=== PATIENT | male | born 1945 | race Caucasian/White ===

== ENCOUNTER 2018-12-15 07:02 | Day surgery (SDC) | payer MEDICARE, OTHER ==
[2018-12-14 16:19] VITALS: BMI 29.4
[2018-12-15 08:09] LABS: #Eosinphils 0.2 thou/uL (0.0-0.7); #Lymphocytes 2.1 thou/uL (1.20-3.40); #Monocytes 0.5 thou/uL (0.11-0.59); %Basophils 0.6 % (0.0-1.0); %Eosinophils 2.8 % (0.0-10.0); %Lymphocytes 36.5 % (21.0-51.0); %Neutrophils 52.1 % (42.0-75.0); Hemoglobin 14.4 g/dL (14.0-18.0); Mean Corpuscular Hemoglobin 30.7 pg (27.0-31.0); Mean Corpuscular Volume 87.7 fL (78.0-98.0); Platelet Count 133 thou/uL (130-400); Red Blood Cell (RBC) Count 4.69 mill/uL (4.70-6.10); White Blood Cell (WBC) Count 5.7 thou/uL (4.8-10.8)
[2018-12-15 08:11] LABS: INR-International Normal Ratio 1.1; PTT 34.7 SEC (22.9-36.1); Prothrombin Time 13.8 SEC (12.0-14.7)
[2018-12-15] MEDS ORDERED: Lidocaine 1% w/Epinephrine 1:100K 20 ML VIAL ONE (08:25)
[2018-12-15] MEDS ORDERED: Fentanyl 100 MCG/2 ML VIAL ONE (08:42)
--- NOTE | 2018-12-15 12:51 | HP ---
HISTORY OF PRESENT ILLNESS: Mr. Huertas is a pleasant 73-year-old male with bilateral carpal tunnel syndrome. The patient's symptoms, the pain is 5/10 and has had multiple injections with good relief. He has failed conservative measures. Numbness and tingling. Works at [employer]. PAST MEDICAL HISTORY: Includes diabetes, rheumatoid arthritis. PAST SURGICAL HISTORY: None. SOCIAL HISTORY: Nonsmoker. No alcohol. Works at [employer]. ALLERGIES: NO KNOWN DRUG ALLERGIES. MEDICATIONS: Prescription list, see administration. PHYSICAL EXAMINATION: GENERAL: Alert and oriented male, in no acute distress, resting comfortably in bed. EXTREMITIES: Left lower extremity has swelling, has some positive Phalen's. He has decreased sensation in median nerve distribution, brisk cap refill. ASSESSMENT: Left carpal tunnel syndrome. PLAN: The patient is planned for a left carpal tunnel release. The patient desires to proceed with a left carpal tunnel release. I have discussed to him the risks and benefits of surgery, pain, scar, bleeding, infection, decreased range of motion and strength, failure of repair or release, need for further surgeries, damage to vital structures. The patient understands the risks and benefits and elected to proceed back for a left carpal tunnel release. He has been signed and consented accordingly. Job ID: [id number] [facility]
--- NOTE | 2018-12-15 15:23 | OP ---
DATE OF PROCEDURE: 12/15/2018 PREOPERATIVE DIAGNOSIS: Left carpal tunnel syndrome. POSTOPERATIVE DIAGNOSIS: Left carpal tunnel syndrome. PROCEDURE PERFORMED: Open carpal tunnel release. TARIFF COMPILER: None. ANESTHESIA: The patient received an LMA with 9 mL of 1% lidocaine with epinephrine. ESTIMATED BLOOD LOSS: Less than 10 mL. TOURNIQUET TIME: 7 minutes of 250 mmHg. ANTIBIOTICS: Ancef. COMPLICATIONS: None. HISTORY OF PRESENT ILLNESS: Mr. Huertas is a 73-year-old male, who presented with bilateral carpal tunnel syndrome, has had several injections but had continued pain. I discussed with the patient the risks and benefits of a left open carpal tunnel release including pain, scar, bleeding, infection, damage to nerve, decreased range of motion and strength, need for further surgeries, damage to vital structures, and loss of life or limb. The patient understood the risks and benefits and elected to proceed. DESCRIPTION OF PROCEDURE: Time-out was performed designating the patient's left upper extremity as the operative site based on site, consents, and marking. After time-out, the tourniquet was brought up and left up for a total of 7 minutes. We made an incision down on the radial border of the fourth ray, proximal Steven's cardinal line down towards the flexor crease down through skin, came down to the palmar fascia and fat, came down found the patient's transverse carpal ligament. We placed hemostat to protect the nerve and transected through the palmaris brevis in the transverse carpal ligament to completely expose the nerve. I protected the nerve, ensured it was completely released proximally. I washed, let the tourniquet down to 7 minutes to control bleeding, closed with 4-0 nylon. I injected 8 mL into the incision line. I injected 1 mL into the incision before the procedure for skin control. The patient will be discharged to home. Follow up with me in about 10 to 14 days for suture removal. Keep the wound covered until followup. Job ID: [id number]
== END 2018-12-15 11:40 | disposition home or self-care (01) ==
LOC: SDC 07:02
PROVIDERS: ATTEND Orthopaedic Surgery
PROC: 01N50ZZ Release Median Nerve, Open Approach (ICD-10-PCS; principal; 2018-12-15)
DX: G56.03 Carpal tunnel syndrome, bilateral upper limbs (principal); E11.9 Type 2 diabetes mellitus without complications; M06.9 Rheumatoid arthritis, unspecified; Z79.82 Long term (current) use of aspirin; Z79.84 Long term (current) use of oral hypoglycemic drugs; Z79.899 Other long term (current) drug therapy
CPT/HCPCS: 36415; 85025; 85610; 85730; J0690; J2001; J3010

== ENCOUNTER 2019-04-20 06:07 | Day surgery (SDC) | payer MEDICARE, OTHER ==
[2019-04-19 11:10] VITALS: BMI 29.1
[2019-04-20 06:41] LABS: #Eosinphils 0.2 thou/uL (0.0-0.7); #Lymphocytes 2.3 thou/uL (1.20-3.40); #Monocytes 0.5 thou/uL (0.11-0.59); #Neutrophils 2.6 thou/uL (1.40-6.50); %Basophils 0.3 % (0.0-1.0); %Eosinophils 4.1 % (0.0-10.0); %Monocytes 8.8 % (0.0-10.0); %Neutrophils 45.8 % (42.0-75.0); Hemoglobin 14.5 g/dL (14.0-18.0); Mean Corpuscular HGB CONC 35.2 g/dL (32.0-36.0); Mean Corpuscular Hemoglobin 30.9 pg (27.0-31.0); Mean Corpuscular Volume 87.8 fL (78.0-98.0); Mean Platelet Volume 7.1 fL (7.4-10.4); Platelet Count 156 thou/uL (130-400); RBC Distribution Width 12.1 % (11.5-14.5); Red Blood Cell (RBC) Count 4.69 mill/uL (4.70-6.10); White Blood Cell (WBC) Count 5.7 thou/uL (4.8-10.8)
[2019-04-20] MEDS ORDERED: Fentanyl 100 MCG/2 ML VIAL ONE (06:42)
[2019-04-20] MEDS ORDERED: Lidocaine 1% (PF) 30 ML VIAL ONE (07:41)
[2019-04-20] MEDS ORDERED: Lidocaine 1% w/Epinephrine 1:100K 20 ML VIAL ONE (07:52)
[2019-04-20] MEDS ORDERED: Glycopyrrolate 0.2 MG/ML 5 ML SYRINGE ONE (10:39)
[2019-04-20] MEDS ORDERED: Lidocaine 1% PF 5 ML VIAL ONE (10:39)
[2019-04-20] MEDS ORDERED: ePHEDrine/0.9% NaCl/PF SYRINGE 50 mg/10 ml ONE (10:39)
[2019-04-20] MEDS ORDERED: Ondansetron PF 4 MG/2 ML Vial ONE (10:39)
[2019-04-20] MEDS ORDERED: PROPOFOL 200 MG/20 ML VIAL ONE (10:39)
[2019-04-20] MEDS ORDERED: Ketorolac Tromethamine 30 MG/ML VIAL ONE (10:39)
--- NOTE | 2019-04-20 14:25 | OP ---
DATE OF PROCEDURE: 04/20/2019 PREOPERATIVE DIAGNOSIS: Right carpal tunnel. POSTOPERATIVE DIAGNOSIS: Right carpal tunnel. PROCEDURE PERFORMED: Right carpal tunnel release, open PULLEY MORTISER OPERATOR: None. ANESTHESIOLOGIST: Abena Kasper ANESTHESIA: The patient received a LMA and 5 mL of 1% plain and 8 mL of 2% ESTIMATED BLOOD LOSS: 15 mL. TOURNIQUET TIME: 4 minutes. ANTIBIOTICS: Ancef 2 g. COMPLICATIONS: None. HISTORY OF PRESENT ILLNESS: Mr. Huertas is a 73-year-old male, who presents with right carpal tunnel syndrome. The patient has previous left carpal tunnel release with positive nerve conduction studies. I discussed with him the risks and benefits of surgery, pain, scar, bleeding, infection, damage to vital structures, need for further surgeries, failure of procedure, continued pain despite surgical intervention, damage to vital structures, and loss of life or limb. The patient understood risks and benefits of procedure and elected to proceed. DESCRIPTION OF PROCEDURE: Time-out was performed designating the patient's right upper extremity as the operative site based on site, consents, and marking. After time-out, the patient's right upper extremity was prepped and draped in sterile fashion. Tourniquet was brought up and left for 4 minutes. Incision was made proximal to Steven's cardinal line in-line with the fourth ray down through the skin crease, to the flexor crease at the proximal end of the palm down through skin, came to the fat, the palmar fascia, placed a probe underneath the patient's transverse carpal ligament and came through the patient's palmaris brevis, the transverse carpal ligament and completely decompressed the nerve, ensured that I get the fingers breath proximally to the space and had complete release. I then washed and then closed his skin with 4-0 nylon. I injected 8 mL of 2% lidocaine with epinephrine. The patient will follow up me in about 2 weeks for suture removal plus soft tissue dressing to protect it. Job ID: [id number] [facility]
== END 2019-04-20 09:30 | disposition home or self-care (01) ==
LOC: SDC 06:07
PROVIDERS: ATTEND Orthopaedic Surgery
PROC: 01N50ZZ Release Median Nerve, Open Approach (ICD-10-PCS; principal; 2019-04-20)
DX: G56.01 Carpal tunnel syndrome, right upper limb (principal); E11.9 Type 2 diabetes mellitus without complications; M06.9 Rheumatoid arthritis, unspecified; Z79.82 Long term (current) use of aspirin; Z79.84 Long term (current) use of oral hypoglycemic drugs; Z79.899 Other long term (current) drug therapy
CPT/HCPCS: 36415; 85025; J0690; J1885; J2001; J2405; J2704; J3010